=== PATIENT | male | born 1960 | race Caucasian/White ===

== ENCOUNTER 2025-10-31 13:28 | Emergency (ER) | payer OTHER, SELFPAY ==
[2025-10-31] VITALS (9 sets, daily range): BP systolic 126–155; BP diastolic 85–97; PULSE 74–88; RESP 8–20; TEMP 36.9; O2SAT 96–100
--- NOTE | ~2025-10-31 | XR_ITS ---
Examination: XR chest 1V portable Clinical History: dizzy AND [employer] Comparison: None Technique: Portable AP Findings: Heart size upper limit of normal. Lungs clear. Except minimal left basilar atelectasis or scarring. No acute bony abnormality. IMPRESSION: 1. No acute cardiopulmonary findings given portable technique. Reviewed, dictated and finalized at location R. IER SELF SERVICE GASOLINE
--- NOTE | ~2025-10-31 | CT_ITS ---
CTA NECK, CTA HEAD Clinical History: left side numbness Comparison: Noncontrast CT head same day TECHNIQUE: Helical images thoracic inlet to vertex IV contrast information not listed in PACS Coronal, sagittal reformats. Multi planar MIPS CT images acquired with automatic exposure control for dose reduction DLP: 1261 mGy-cm Findings: NASCET Criteria utilized CTA NECK Aortic arch: No aneurysm or dissection. Great vessel origins: No stenosis. CCAs: No stenosis. Cervical ICAs: Mild bulb disease but no stenosis. Vertebral Arteries: Patent. Lung Apices: Highly worrisome for PE left upper lobe. Thyroid: Unremarkable. Nodes: No enlarged nodes. Bones: No acute bony abnormality. CTA HEAD: Aneurysms: None. Intracranial ICAs: Patent, unremarkable. ACAs and their distal branches: Patent, unremarkable. A-Comm: Not present. MCAs and their distal branches: Patent, unremarkable. Basilar artery: Patent, unremarkable. kraft mill operator and their distal branches: Patent, unremarkable. P-Comms: Identified. Patent, unremarkable. Findings and recommendations discussed with Dr. Abner Gerber at 3:05 PM EST. IMPRESSION: CTA NECK: 1. No acute cervical arterial abnormality. 2. Left upper lobe PE not excluded. Recommend CTA PE chest. CTA HEAD: 1. No acute findings. Reviewed, dictated and finalized at location R. TES INSTRUCTOR
--- NOTE | ~2025-10-31 | CT_ITS ---
EXAMINATION: CT brain wo kristie, 10/31/2025 13:48 PRODUCER HISTORY: sudden onset dizziness, b/l leg weakness COMPARISON: No comparisons available. Technique: Axial images obtained of the brain without contrast. One or more of the following dose reduction techniques were used: automated exposure control, adjustment of the mA and/or kV according to patient size, use of iterative reconstruction technique. Findings: No acute infarct or parenchymal hemorrhage. No abnormal mass or mass effect. No midline shift. No extra-axial fluid collections. No hydrocephalus. Mastoid air cells unremarkable. Sinuses and orbits unremarkable. No acute fracture. No significant facial or scalp soft tissue swelling evident. No radiopaque foreign body is seen. Impression: 1.No acute intracranial abnormality. Reviewed, dictated and finalized at location P. UCER Impression: 1.No acute intracranial abnormality.
--- NOTE | ~2025-10-31 | CT_ITS ---
EXAMINATION: CTA chest PE protocol DATE: 10/31/2025 14:50 INDICATION: Rule out PE TECHNIQUE: Computed tomography angiography (CTA) of the chest was performed with 100 mL Omnipaque-350 intravenous contrast timed to evaluate the pulmonary arteries. Coronal maximum intensity projection 3D-reconstructions were created by the technologist. The dose-length product was 13.81 mGy-cm. COMPARISON: None. FINDINGS: No pulmonary emboli or thoracic aortic aneurysm/dissection. Heart size normal. No bulky lymphadenopathy or masses. Airways appear patent. Lungs are clear. Mild atherosclerotic and coronary artery calcifications present. The esophagus is somewhat patulous and small hiatal hernia present with slight thickening in the distal esophageal wall. No acute process seen in the visualized portions of the upper abdomen or exercise soft tissues. Cholelithiasis and degenerative changes in the thoracic spine noted. IMPRESSION: 1. No pulmonary emboli or thoracic aortic aneurysm/dissection. No gross acute intrathoracic process. 2. Small hiatal hernia with mild thickened appearance of the distal esophageal wall which may represent esophagitis. 3. Other findings as above. Reviewed, dictated and finalized at location A. MENTAL MACHINE OPERATOR IMPRESSION: 1. No pulmonary emboli or thoracic aortic aneurysm/dissection. No gross acute i ntrathoracic process. 2. Small hiatal hernia with mild thickened appearance of the distal esophageal wall which may represent esophagitis. 3. Other findings as above.
--- NOTE | 2025-10-31 13:35 | PC.NURSE ---
Patient here from triage from home with . Patient is alert and oriented with complaint of sudden onset of bilateral leg weakness and feeling dizzy. patient had recent colonoscopy. BG in the 70's upon arrival. Patient denies any pain. 1335 to STROKE ST[address]; waited on room to be open and cleansed, IV and labs obtained while waiting. 1355 back to the ED; placed on monitor, EKG and to bedside. ERP to bedside and updated the patient to inform the patient that at this time the CT was negative for STROKE.
--- NOTE | 2025-10-31 13:36 | ECG_ITS ---
Test Date: 2025-10-31 14:01:40 Measurements Intervals [place] Rate: 88 P: 40 VT: 194 QRS: -8 QRSD: 104 T: 18 QT: 368 QTc: 447 Interpretive Statements SINUS RHYTHM MINIMAL Q WAVES- HIGH LATERAL LEADS BORDERLINE T WAVE ABNORMALITY- INFERIOR LEADS BASELINE ARTIFACT- I, II, III, AVR, AVL, AVF, V1 BORDERLINE ECG No previous ECG available for comparison Electronically Signed On 10-31-2025 14:03:14 PLATING TANK OPERATOR APPRENTICE by Mukund Sweeney D.O.
[2025-10-31 14:00] LABS: Hematocrit 36.0 % (42.0-52.0); Hemoglobin 11.7 g/dL (14.0-18.0); Immature Granulocyte Percent A 0.4 % (0-0.5); Lymphocytes Absolute Auto 0.98 K/mm3 (0.9-3.2); Mean Corpuscular HGB Conc 32.5 g/dl (32-36); Mean Corpuscular Hemoglobin 29.4 pg (26-34); Mean Corpuscular Volume 90.5 fl (80-100); Nucleated Red Blood Cells Absolute Auto 0.000 K/mm3 (0.0-0.012); Nucleated Red Blood Cells Perc 0.0 % (0.0-0.2); Platelet Count Result 301 k/mm3 (150-375); Red Blood Count 3.98 M/mm3 (4.6-6.20); White Blood Count 4.7 K/mm3 (4.5-10.0)
[2025-10-31 14:10] LABS: INR 1.0; Prothrombin Time 13.1 Seconds (11.1-14.7)
[2025-10-31 14:11] LABS: Partial Thromboplastin Time 26.2 Seconds (22.3-36.8)
[2025-10-31 14:12] LABS: Alanine Aminotransferase 34 U/L (6-50); Albumin Level 4.6 g/dL (3.5-5.1); Alkaline Phosphatase 119 U/L (38-126); Anion Gap 6 mmol/L (4-12); Aspartate Amino Transferase 50 U/L (17-59); Bilirubin,Total 0.4 mg/dL (0.2-1.3); Blood Urea Nitrogen 15 mg/dL (9-20); Calcium 8.9 mg/dL (8.4-10.2); Carbon Dioxide 24 mmol/L (22-30); Chloride 106 mmol/L (98-107); Estimated Glomerular Filt Rate > 60; Glucose 96 mg/dL (65-110); Magnesium 2.0 mg/dL (1.6-2.3); Potassium 3.5 mmol/L (3.4-5.0); Sodium 136 mmol/L (137-145); Total Protein 8.1 g/dL (6.3-8.2)
[2025-10-31] MEDS: SODIUM CHLORIDE 0.9% IV 1,000 ML 999 ML IV CONT (14:20)
[2025-10-31 14:23] LABS: Troponin I < 0.012 ng/mL (0.000-0.034)
--- NOTE | 2025-10-31 15:24 | PC.NURSE ---
Patient ambulated around the nurses station with one person assist, ERP made aware. Patient stated that in August the patient noted that he was in the hospital for diverticulitis and had intermittent dizziness which was treated with the Jeannette maneuver that helped resolve
--- NOTE | 2025-10-31 15:45 | ED_ITS ---
HPI - General Adult General Chief complaint: Dizziness Stated complaint: Sudden onset Dizziness Time Seen by Provider: 10/31/25 13:36 History of Present Illness HPI narrative: patient is a 65-year-old gentleman presents emergency department chief complaint of dizziness. The patient reports that he was at work had sudden onset of a lightheaded feeling and then reported that he had weakness in his arms was unable to type with his phone and then was unable to ambulate Related Data Allergies Allergy/AdvReac Type Severity Reaction Status Date / Time No Known Allergies Allergy Verified 10/31/25 13:30 Review of Systems 2 Review of Systems: A 10 system review of systems was completed on the patient and is negative except for what is stated in the HPI. Nursing and ancillary documentation was reviewed. Exam 2 Narrative: GENERAL: Well-appearing, well-nourished, and in no acute distress. HEAD: Normocephalic, atraumatic. EYES: PERRLA and EOMI. ENT: Nares clear, no rhinorrhea or epistaxis. Mucous membranes moist. NECK: Supple. CHEST: Clear to auscultation. No respiratory distress. HEART: Regular rate and rhythm. No murmur heard. Normal peripheral pulses. ABDOMEN: Soft, nontender, nondistended, normal active bowel sounds. EXTREMITIES: Normal range of motion. No edema. SKIN: Warm, dry, no rash. NEURO: Slight ataxia, otherwise no focal deficits. Alert and oriented x3. PSYCH: Normal mood and affect. Course Vital Signs Vital signs: Vital Signs Temperature 36.9 C 10/31/25 14:00 Pulse Rate 88 10/31/25 14:00 Respiratory Rate 14 10/31/25 14:00 Blood Pressure 155/94 H 10/31/25 14:00 Pulse Oximetry 99 10/31/25 14:00 Oxygen Delivery Room Air 10/31/25 14:00 Temperature 36.9 C 10/31/25 14:00 Pulse Rate 83 10/31/25 16:01 Respiratory Rate 12 10/31/25 16:01 Blood Pressure 137/89 10/31/25 16:01 Pulse Oximetry 99 10/31/25 16:01 Oxygen Delivery Room Air 10/31/25 14:00 [facility] Narrative Medical decision making narrative: CTA head was negative CTA head and neck showed no evidence of large vessel occlusion there was possible pulmonary embolism present on scan the patient underwent CTA chest that showed no evidence of PE. The patient is improved and able to ambulate he still has some slight ataxia with an NIH of 1 the patient is not a thrombolytics candidate at this time due to this the case was discussed with the transfer center and was accepted at [facility] as we do not have neuro coverage Differential Diagnosis Differential Diagnosis: CVA, intracranial hemorrhage, large vessel occlusion, vertigo, Lab Data 10/31/25 13:51 10/31/25 13:51 Labs: Lab Results 10/31/25 10/31/25 10/31/25 Range/Units 13:35 13:51 13:51 WBC 4.7 (4.5-10.0) K/mm3 RBC 3.98 L (4.6-6.20) M/mm3 Hgb 11.7 L (14.0-18.0) g/dL Hct 36.0 L (42.0-52.0) % MCV 90.5 (80-100) fl MCH 29.4 (26-34) pg MCHC 32.5 (32-36) g/dl RDW 12.7 (11.5-14.5) % Plt Count 301 (150-375) k/mm3 MPV 8.7 (7.4-10.4) fl Immature Gran % (Auto) 0.4 (0-0.5) % Neut % (Auto) 64.8 (45.5-73.1) % Lymph % (Auto) 21.1 (18.3-44.2) % [place] % (Auto) 7.5 (2.6-8.5) % Eos % (Auto) 4.9 H (0-4.4) % Baso % (Auto) 1.3 H (0.2-1.2) % Lymph # (Auto) 0.98 (0.9-3.2) K/mm3 [place] # (Auto) 0.4 (0.1-0.6) K/mm3 Eos # (Auto) 0.2 (0-0.3) K/mm3 Baso # (Auto) 0.1 (0.0-0.1) K/mm3 Abs Immat Gran (auto) 0.02 (0.00-0.031) K/mm3 Absolute Neuts (auto) 3.0 (1.3-6.7) K/mm3 Absolute Nucleated RBC 0.000 (0.0-0.012) K/mm3 Nucleated RBC % 0.0 (0.0-0.2) % PT 13.1 (11.1-14.7) Seconds INR 1.0 APTT 26.2 (22.3-36.8) Seconds Sodium 136 L (137-145) mmol/L Potassium 3.5 (3.4-5.0) mmol/L Chloride 106 (98-107) mmol/L Carbon Dioxide 24 (22-30) mmol/L Anion Gap 6 (4-12) mmol/L BUN 15 (9-20) mg/dL Creatinine 0.77 (0.7-1.3) mg/dL Estim Creat Clear Calc Not Reportable Estimated GFR > 60 (59 - ) Glucose 96 (65-110) mg/dL POC Capillary Glucose 93 (65-105) mg/dl Calcium 8.9 (8.4-10.2) mg/dL Magnesium 2.0 Cancelled (1.6-2.3) mg/dL Total Bilirubin 0.4 (0.2-1.3) mg/dL AST 50 (17-59) U/L ALT 34 (6-50) U/L Alkaline Phosphatase 119 (38-126) U/L Troponin I < 0.012 (0.000-0.034) ng/mL Total Protein 8.1 (6.3-8.2) g/dL Albumin 4.6 (3.5-5.1) g/dL Lamotrigine Pending Imaging Data Radiologist's impression: ITS Impressions Head CT 10/31/25 13:55 Impression: 1.No acute intracranial abnormality. Head/Neck CTA 10/31/25 13:58 IMPRESSION: CTA NECK: 1. No acute cervical arterial abnormality. 2. Left upper lobe PE not excluded. Recommend CTA PE chest. CTA HEAD: 1. No acute findings. Chest X-Ray 10/31/25 14:14 IMPRESSION: 1. No acute cardiopulmonary findings given portable technique. Chest CTA 10/31/25 14:51 IMPRESSION: 1. No pulmonary emboli or thoracic aortic aneurysm/dissection. No gross acute intrathoracic process. 2. Small hiatal hernia with mild thickened appearance of the distal esophageal wall which may represent esophagitis. 3. Other findings as above. Discharge Plan Discharge Clinical Impression: Dizziness, Ataxia Patient Disposition: Acute Care Hospital Condition: Stable Patient Language: Italian Follow-up/Referrals: Harms,Kingsley Block M.D. [Primary Care Provider] Time of Disposition: 16:28
== END 2025-10-31 19:16 | disposition short-term general hospital (02) ==
PROVIDERS: Emergency Provider Emergency Medicine; PCP Family Medicine
DX: R27.0 Ataxia, unspecified (principal); K44.9 Diaphragmatic hernia without obstruction or gangrene; R94.31 Abnormal electrocardiogram [ECG] [EKG]
CPT/HCPCS: 36415; 70450; 70496; 70498; 71045; 71275; 80053; 80175; 82948; 83735; 84484; 85025; 85610; 85730; 93005; 96360; 99285; J7030; Q9967